=== PATIENT | female | born 1960 | race African-American/Black ===

== ENCOUNTER → 2020-06-19 08:15 | Outpatient (BNVA) | payer OTHER, SELFPAY | PROVIDERS: PCP Family Medicine; Referring Provider Family Medicine; Visit Provider Physician Assistant | DX: Z76.89 Persons encountering health services in other specified circumstances (principal) ==

== ENCOUNTER → 2020-06-26 14:37 | Outpatient (BNVA) | payer OTHER, SELFPAY | PROVIDERS: PCP Pediatrics; Referring Provider Pediatrics; Visit Provider Physician Assistant | DX: Z76.89 Persons encountering health services in other specified circumstances (principal) ==

== ENCOUNTER 2020-07-03 06:31 | Outpatient (REF) | payer OTHER, SELFPAY | END 2020-07-03 06:32 | disposition home or self-care (01) | LOC: HO.LAB 06:31 | PROVIDERS: Visit Provider Family Medicine | DX: Z20.828 Contact with and (suspected) exposure to other viral communicable diseases (principal) | CPT/HCPCS: C9803; U0003 ==

== ENCOUNTER 2020-07-26 08:19 | Outpatient (REF) | payer OTHER, SELFPAY ==
[2020-07-28 15:28] LABS: H Pylori Breath Test DETECTED (NOT DETECTED)
== END 2020-07-26 08:20 | disposition home or self-care (01) ==
LOC: HO.LNP 08:19
PROVIDERS: Physician Assistant; PCP Pediatrics; Referring Provider Pediatrics; Visit Provider Physician Assistant
DX: Z11.0 Encounter for screening for intestinal infectious diseases (principal)
CPT/HCPCS: 83013

== ENCOUNTER → 2020-07-28 08:13 | Outpatient (BNVA) | payer OTHER, SELFPAY | PROVIDERS: PCP Pediatrics; Referring Provider Pediatrics; Visit Provider Surgery | DX: Z76.89 Persons encountering health services in other specified circumstances (principal) ==

== ENCOUNTER → 2020-07-31 08:28 | Outpatient (BNVA) | payer OTHER, SELFPAY | PROVIDERS: PCP Pediatrics; Referring Provider Pediatrics; Visit Provider Dietitian, Registered | DX: Z76.89 Persons encountering health services in other specified circumstances (principal) ==

== ENCOUNTER → 2020-08-07 08:23 | Outpatient (BNVA) | payer OTHER, SELFPAY | PROVIDERS: PCP Pediatrics; Visit Provider Dietitian, Registered | DX: Z76.89 Persons encountering health services in other specified circumstances (principal) ==

== ENCOUNTER 2020-08-09 06:10 | Outpatient (REF) | payer OTHER, SELFPAY ==
[2020-08-09 07:07] LABS: MANUAL DIFF FLAG NO
[2020-08-09 07:13] LABS: Basophils Percent Auto 0.4 % (0-2); Eosinophils Absolute Auto 0.1 X10*3/uL (0.0-0.4); Eosinophils Percent Auto 0.8 % (0-4); Hematocrit 39.7 % (37-47); Imm Gran Abs Auto 0.11 X10*3/uL (0.00-0.03); Imm Gran Pct Auto 1.2 % (0.0-0.4); Lymphocytes Absolute Auto 2.1 X10*3/uL (1.2-4.9); Lymphocytes Percent Auto 23.3 % (20-40); Mean Corpuscular HGB Conc 30.2 g/dl (31.0-35.0); Mean Corpuscular Volume 79.4 fL (80-98); Mean Platelet Volume 10.5 fL (9.4-12.3); Monocytes Absolute Auto 0.5 X10*3/uL (0.1-1.2); Neutrophils Absolute Auto 6.1 X10*3/uL (2.0-8.3); Neutrophils Percent Auto 68.3 % (45-73); Platelet Count 327 X10*3/uL (160-400); Red Cell Distribution Width 14.4 % (11.0-16.0)
[2020-08-09 07:32] LABS: Estimated Average Glucose 148 mg/dL; Hemoglobin A1C 159.0692 umol/L; Hemoglobin A1c % 6.8 %
[2020-08-09 07:48] LABS: Alanine Aminotransferase 36 U/L (0-31); Albumin Level 3.7 g/dL (3.5-5.0); Alkaline Phosphatase 81 U/L (39-117); Anion Gap 11 (12-20); Aspartate Amino Transferase 23 U/L (5-31); Bilirubin Total 0.5 mg/dL (0.0-1.0); Blood Urea Nitrogen 19 mg/dL (9-16); C Reactive Protein 1.19 mg/dL (< or = 0.50); Calcium 9.1 mg/dL (8.4-10.2); Carbon Dioxide 29 mmol/L (22-29); Chloride 104 mmol/L (96-108); Cholesterol 154 mg/dL; Estimated Glomerular Filt Rate > 60; HDL Cholesterol 39 mg/dL; Iron 35 mcg/dL (30-160); LDL Cholesterol Calculated 95 mg/dl; Percent Iron Saturation 9 % (15-50); Potassium 3.3 mmol/l (3.3-5.1); Sodium 141 mmol/L (135-145); Total Iron Binding Capacity 389 mcg/dL (228-428); Total Protein 7.2 g/dL (6.5-8.0); Triglycerides 102 mg/dL; Unsaturated Iron Binding 354 ug/dL
[2020-08-09 07:53] LABS: Ferritin 36 ng/mL (10-250); TSH reflex Free T4 2.06 mIU/mL (0.32-4.0)
[2020-08-09 08:18] LABS: Folate 9.1 ng/mL (> or = 4.0); Vitamin B12 882 pg/mL (200-900)
[2020-08-09 08:48] LABS: Glucose Fasting 51 mg/dL (60-99)
[2020-08-10 11:42] LABS: Insulin Level Total 240.8 uIU/mL
[2020-08-10 19:08] LABS: Calcium (PTHI) 9.2 mg/dL (8.6-10.4); PTHI 54 pg/mL (14-64)
[2020-08-13 12:23] LABS: Vitamin B1 7 nmol/L (8-30)
[2020-08-13 23:32] LABS: Zinc 88 mcg/dL (60-130)
[2020-08-15 11:27] LABS: Vitamin A 44 mcg/dL (38-98)
== END 2020-08-09 06:11 | disposition home or self-care (01) ==
LOC: HO.LAB 06:10
PROVIDERS: PCP Family Medicine; Visit Provider Physician Assistant
DX: E66.01 Morbid (severe) obesity due to excess calories (principal)
CPT/HCPCS: 36415; 80053; 80061; 82306; 82607; 82728; 82746; 83036; 83525; 83540; 83970; 84425; 84443; 84590; 84630; 85025; 86140

== ENCOUNTER 2020-08-14 09:15 | Outpatient (REF) | payer OTHER, SELFPAY ==
--- NOTE | 2020-08-14 09:18 | US_ITS ---
EXAMINATION: US COMPLETE ABDOMEN WITH LIVER ELASTOGRAPHY CLINICAL INFORMATION: [id number] obesity. COMPARISON: None. TECHNIQUE: Real-time imaging of the abdominal viscera. Noninvasive ultrasound liver fibrosis assessment is performed using Danielle ElastPQ point quantification shear wave elastography (pSWE) with a 5 MHz transducer. Multiple elastography samples are obtained. FINDINGS: PANCREAS: The visualized pancreatic head and body are normal in appearance. The tail of the pancreas is obscured from visualization by the overlying bowel gas. ABDOMINAL AORTA: The proximal, middle, and distal aortic segments are normal in caliber. INFERIOR VENA CAVA: Visualized portions are normal. LIVER: The liver demonstrates enlarged size, normal contour and increased echogenicity. No focal lesion or intrahepatic biliary duct dilatation. The right lobe measures 22.6 cm in length. The left lobe measures 13.5 cm in length. There is hepatopedal flow seen in the portal vein on Doppler exam. Shear wave elastography provides a median stiffness of 1.13 m/s (reference: normal median stiffness is 0.81 - 1.22 m/s). The IQR/median stiffness to assess sampling precision is 0.44 (reference: optimal IQR/median stiffness is under 0.3). GALLBLADDER: Gallbladder wall is 0.2 cm thick. The gallbladder is physiologically distended without evidence of stones, sludge, polyps, wall thickening or pericholecystic fluid. COMMON BILE DUCT: Normal in caliber measuring 0.4 cm in diameter. RIGHT KIDNEY: Normal. No hydronephrosis. No renal calculi or focal parenchymal lesions. The kidney measures 13.1 cm in maximum dimension. LEFT KIDNEY: Normal. No hydronephrosis. No renal calculi or focal parenchymal lesions. The kidney measures 11.8 cm in maximum dimension. SPLEEN: Normal. The spleen measures 12.3 cm in maximum dimension. FREE FLUID: None. US/US abdomen comp w elastography IMPRESSION: 1. Hepatic steatosis with mild hepatomegaly but no focal lesion seen. The rest of the abdominal ultrasound is unremarkable. 2. Elastography: Liver elastography measurements are within normal (METAVIR Stage F0). However, there is suboptimal liver sampling.
--- NOTE | 2020-08-14 09:18 | XR_ITS ---
EXAMINATION: XR CHEST CLINICAL INFORMATION: Shortness of breath. COMPARISON: None TECHNIQUE: 2 views of the chest were obtained. FINDINGS: No significant abnormality is noted involving the heart, lungs, mediastinum, bony thorax or soft tissues. XR/XR chest 2V IMPRESSION: Unremarkable chest examination.
--- NOTE | 2020-08-14 09:18 | FL_ITS ---
EXAMINATION: XR GI SERIES CLINICAL INFORMATION: Morbid severe obesity due to excess calories. COMPARISON: None. TECHNIQUE: Routine upper GI air contrast study was performed in upright and lying positions. FINDINGS: Following oral administration of thick barium and effervescent granules, there is normal propagation of bolus from the oral cavity through the pharynx and esophagus and into the stomach without any evidence of obstruction, narrowing or stricture. On placing patient supine and prone, the course, caliber and peristalsis of the stomach and the duodenal bulb are normal. The mucosal pattern of the stomach and the duodenum is normal. There is mild gastroesophageal reflux present without hiatal hernia. FLUOROSCOPY TIME: 1.8 minutes. DOSE AREA PRODUCT: 51.844 uGy-m2 (microgray-meter squared). FL/FL upper GI series IMPRESSION: Mild gastroesophageal reflux. Otherwise unremarkable upper GI air contrast study.
== END 2020-08-14 09:16 | disposition home or self-care (01) ==
LOC: HO.US 09:15
PROVIDERS: PCP Family Medicine; Visit Provider Surgery
DX: Z01.818 Encounter for other preprocedural examination (principal); E66.01 Morbid (severe) obesity due to excess calories; R06.02 Shortness of breath; K21.9 Gastro-esophageal reflux disease without esophagitis
CPT/HCPCS: 71046; 74240; 76705; 76981

== ENCOUNTER → 2020-08-28 07:18 | Outpatient (BNVA) | payer OTHER, SELFPAY | PROVIDERS: PCP Family Medicine; Visit Provider Surgery | DX: Z76.89 Persons encountering health services in other specified circumstances (principal) ==

== ENCOUNTER → 2020-08-30 08:04 | Outpatient (BNVA) | payer OTHER, SELFPAY | PROVIDERS: PCP Family Medicine; Visit Provider Surgery | DX: Z76.89 Persons encountering health services in other specified circumstances (principal) ==

== ENCOUNTER 2020-08-30 08:36 | Outpatient (REF) | payer OTHER, SELFPAY ==
[2020-09-02 14:52] LABS: H Pylori Breath Test NOT DETECTED (NOT DETECTED)
== END 2020-08-30 08:37 | disposition home or self-care (01) ==
LOC: HO.LNP 08:36
PROVIDERS: Visit Provider Physician Assistant
DX: Z01.818 Encounter for other preprocedural examination (principal)
CPT/HCPCS: 83013

== ENCOUNTER 2020-09-01 16:45 | Outpatient (REF) | payer OTHER, SELFPAY | END 2020-09-01 16:46 | disposition home or self-care (01) | LOC: HO.LNP 16:45 | PROVIDERS: Visit Provider Physician Assistant | DX: Z13.89 Encounter for screening for other disorder (principal) ==

== ENCOUNTER → 2020-09-06 07:38 | Outpatient (REF) | payer OTHER, SELFPAY ==
--- NOTE | 2020-09-06 07:49 | ECG_ITS ---
Test Reason : SOB Blood Pressure : / mmHG Vent. Rate : 085 BPM Atrial Rate : 085 BPM P-R Int : 168 ms QRS Dur : 110 ms QT Int : 392 ms P-R-T Axes : 061 081 -05 degrees QTc Int : 466 ms Normal sinus rhythm Nonspecific ST and T wave abnormality Borderline ECG No previous ECGs available Referred By: Charo Ponce Electronically Signed By:TRISTIN MORALEZ
== END ==
LOC: HO.CARD 07:38
PROVIDERS: PCP Family Medicine; Visit Provider Physician Assistant
DX: R06.02 Shortness of breath (principal); E66.01 Morbid (severe) obesity due to excess calories
CPT/HCPCS: 93005

== ENCOUNTER → 2020-09-20 07:27 | Outpatient (BNVA) | payer OTHER, SELFPAY | PROVIDERS: PCP Family Medicine; Visit Provider Surgery ==

== ENCOUNTER → 2020-09-27 08:34 | Outpatient (REF) | payer OTHER, SELFPAY ==
--- NOTE | ~2020-09-27 | NM_ITS ---
Lexiscan Myocardial perfusion study Indication: Abnormal EKG, diabetes, hypertension, obesity, assess for coronary disease and ischemia Technique: The patient was brought in for a Lexiscan perfusion study on 09/27/2020 and was injected 0.4 mg of Lexiscan intravenously. Within a minute of this injection 35 mCi of sestamibi was given intravenously. Images were obtained using the SPECT gamma camera interlaced with the gating device. Images were obtained in supine position. Resting perfusion study was performed on 10/04/2020. Patient was administered 35 mCi of sestamibi intravenously at rest. Images were then obtained in supine position. Total DLP 80mGy-cm. CT component was performed only during stress. Images were processed with the software and compared side to side in short axis, horizontal long axis and vertical long axis views. Findings: Raw acquisition was reviewed. The stress perfusion study showed no significant perfusion abnormality. Both uncorrected as well as CT attenuation corrected images were reviewed. The gated study shows low normal LV systolic function with calculated LVEF of 51%. LV cavity is normal in size. The gated study shows normal wall thickening and contraction of segments. Resting study shows no significant perfusion abnormality. Gating at rest reveals normal wall motion with ejection fraction at 60%. The findings are consistent with no definite reversible or fixed perfusion abnormality. NM/NM leobardo perf SPECT rest & str Impression: 1. Myocardial perfusion imaging study shows likely normal myocardial perfusion. No definitive evidence of any ischemia or infarction. 2. Gated LVEF is 51% during stress; 60% during rest. 3. Transient ischemic dilatation not present. EKG component of the test reported separately.
--- NOTE | 2020-09-27 08:41 | CA_ITS ---
Acquisition Time: 2020-09-27 09:56:42 Total Exercise Time: 00:02:00 Test Indications: Abnormal ECG Medications: SEE CHART Protocol: LEXISCAN Max HR: 103 BPM 63% of Pred: 162 BPM Max BP: 108/062 mmHG Max Work Load: 1.6 METS Pharm stress test using Lexiscan while walking on treadmil for 2 min. Pt tolerated well. Denies any anginal sx. EKG without any arrhythmias, non-diagnostic for ischemia. Nuclear images to follow. Normotensive response to test. Test reviewed with Dr. Saez. Referred By: Jorge Kumar Overread By: Thomas Sam
== END ==
LOC: HO.CARD 08:34
PROVIDERS: Visit Provider Surgery
DX: Z01.818 Encounter for other preprocedural examination (principal); R06.02 Shortness of breath; I10 Essential (primary) hypertension; R94.31 Abnormal electrocardiogram [ECG] [EKG]
CPT/HCPCS: 78452; 93017; A9500; J0280; J2785

== ENCOUNTER → 2020-10-09 12:47 | Outpatient (BNVA) | payer OTHER, SELFPAY | PROVIDERS: PCP Family Medicine; Visit Provider Dietitian, Registered ==

== ENCOUNTER → 2020-10-11 07:30 | Outpatient (BNVA) | payer OTHER, SELFPAY | PROVIDERS: PCP Family Medicine; Visit Provider Surgery ==

== ENCOUNTER → 2020-10-30 08:24 | Outpatient (REF) | payer OTHER, SELFPAY ==
--- NOTE | 2020-10-30 08:28 | CA_ITS ---
Transthoracic Echocardiogram Patient (Last, First, Middle): Sujata Rincon, Gender: Female Date of : 1960 Age: 59 Procedure Date: 10/30/2020 Procedure Type: Transthoracic Echocardiogram Location: OP Height: 167.64 cm Weight: 106.6 kg BSA: 2.14 m2 Heart Rate: bpm BP: 110 / 60 mmHg Cover Seamer: DSG Referring MD: Jorge Kumar MD High Rigger: Davin Juarez MD Symptoms: R94.31 - Abnormal electrocardiogram [ECG] [EKG] Study Quality: Technically Difficult ECG Rhythm: Sinus Conclusions: - 1. Technically difficult study despite use of contrast agent 2. Normal LV systolic function with LVEF of 65-70% with grade 1 diastolic dysfunction with mild asymmetric septal hypertrophy 3. Normal cardiac valvular Doppler 4. No gross pericardial effusion Findings Procedure Information Contrast agent, definity, is being given per protocol without apparent complications. Left Ventricle Normal left ventricular size, thickness, and systolic function. The visually estimated ejection fraction is between 65-70%. Spectral Doppler is indicative of an impaired relaxation filling pattern. E/E prime ratio is <8, consistent with normal filling pressures. Evidence suggests grade I (mild) diastolic dysfunction. There is mild septal asymmetric hypertrophy. Right Ventricle The right ventricle was not well visualized. Atria The left atrium is normal in size. There is lipomatous hypertrophy of the interatrial septum. There is no evidence of interatrial shunt. The right atrium was not well visualized. Aortic Valve There is mild calcification of the aortic valve. There is mild thickening of the aortic valve. There is no aortic valve stenosis. There is no aortic valve regurgitation. Mitral Valve Likely normal mitral valve structure and function. There is trace mitral valve regurgitation. There is no mitral valve stenosis. Pulmonic Valve The pulmonic valve was not well visualized. Tricuspid Valve The tricuspid valve was not well visualized. Tricuspid regurgitation envelope is inadequate for calculation of right ventricular systolic pressure. Great Vessels All visible segments of the aorta are normal in size. The pulmonary artery was not well visualized. Venous The inferior vena cava is normal in size and collapses greater than 50% with inspiration. Pericardium/Pleural There is no evidence of pericardial effusion. Prior Study Comparison No prior study available for comparison. Measurements M-Mode Liner Measurements Normals - Women/Men IVSd: 1.47 0.6-0.9/0.6-1.0 cm LVPWd: 1.66 0.6-0.9/0.6-1.0 cm 2D Linear Measurements IVSd: 1.22 0.6-0.9/0.6-1.0 cm LVIDd: 3.79 3.9-5.3/4.2-5.9 cm LVIDd Index: 1.77 2.4-3.2/2.2-3.1 cm/m2 LVIDs: 2.58 2.0-3.6 cm LVPWd: 0.82 0.7-1.1 cm Ao Root: 3.40 2.1-3.5 cm LA Diam: 3.40 2.7-3.8/3.0-4.0 cm LAIDs Index: 1.59 1.5-2.3 cm/m2 LV Mass: 219.86 67-162/88-224 g LV Mass Index: 102.74 43-95/49-115 g/m2 LVOT Diam: 2.20 3.0+(-)1.3 cm Mitral Valve MV Pk E: 0.62 MV PK A: 0.67 MV Decel Time: 317.00 E/A: 0.90 E'Lateral: 6.42 E'Medial: 5.33 E/E' Med: 11.70 E/E' Lat: 9.70 PHT: 93.00 MVA PHT: 2.37 Decel [place]: 1.97 Aortic Valve AoV Pk Corbin: 1.13 AoV Pk Grad: 5.00 LVOT LVOT Pk [place]: 1.11 LVOT Mn [place]: 0.83 LVOT VTI: 0.24 LVOT Pk Grad: 5.00 LVOT Mn Grad: 3.00 LVOT Diam: 2.20 LVOT Area: 3.80 Diastolic Function MV Pk E: 0.62 MV Pk A: 0.67 E/A: 0.90 E'Medial: 5.33 E/E' Med: 11.70 E' Laterial: 6.42 E/E' Lat: 9.70 Tricuspid Valve RA Press: 3.00 Great Vessels Aorta Ao Root-2D: 3.40 2.0-3.7 cm Ao Asc: 3.30 2.1-3.4 cm Updated in Other Vendor System with Status of Final Davin Juarez MD electronically signed on 10/30/2020 4:44:33 PM with status of Final
== END ==
LOC: HO.CARD 08:24
PROVIDERS: Visit Provider Surgery
DX: Z01.818 Encounter for other preprocedural examination (principal); R06.02 Shortness of breath; I10 Essential (primary) hypertension; R94.31 Abnormal electrocardiogram [ECG] [EKG]
CPT/HCPCS: 93306; Q9957

== ENCOUNTER → 2020-11-01 08:10 | Outpatient (BNVA) | payer OTHER, SELFPAY | PROVIDERS: PCP Family Medicine; Visit Provider Surgery ==

== ENCOUNTER 2020-11-20 11:31 | Outpatient (REF) | payer OTHER, SELFPAY ==
[2020-11-21 10:00] LABS: CT PCR NOT DETECTED (Not Detect.); NG PCR NOT DETECTED (Not Detect.)
[2020-11-21 10:43] LABS: BV Int Neg Control Negative (Negative); BV Int Pos Control Positive (Positive)
== END 2020-11-20 11:32 | disposition home or self-care (01) ==
LOC: HO.LAB 11:31
PROVIDERS: PCP Family Medicine; Visit Provider Advanced Practice Midwife
DX: N89.8 Other specified noninflammatory disorders of vagina (principal); Z11.3 Encounter for screening for infections with a predominantly sexual mode of transmission; Z11.8 Encounter for screening for other infectious and parasitic diseases; L65.9 Nonscarring hair loss, unspecified; E66.01 Morbid (severe) obesity due to excess calories; E78.5 Hyperlipidemia, unspecified; I10 Essential (primary) hypertension; F41.9 Anxiety disorder, unspecified; Z87.891 Personal history of nicotine dependence; Z68.41 Body mass index [BMI] 40.0-44.9, adult; Z90.710 Acquired absence of both cervix and uterus
CPT/HCPCS: 87480; 87491; 87510; 87591; 87660

== ENCOUNTER → 2020-11-22 07:36 | Outpatient (BNVA) | payer OTHER, SELFPAY | PROVIDERS: PCP Family Medicine; Visit Provider Surgery ==

== ENCOUNTER → 2020-12-15 07:04 | Outpatient (BNVA) | payer OTHER, SELFPAY | PROVIDERS: PCP Family Medicine; Visit Provider Surgery ==

== ENCOUNTER → 2021-01-01 14:02 | Outpatient (BNVA) | payer OTHER, SELFPAY | PROVIDERS: PCP Family Medicine; Visit Provider Surgery ==

== ENCOUNTER → 2021-01-12 12:55 | Outpatient (BNVA) | payer OTHER, SELFPAY | PROVIDERS: PCP Family Medicine; Visit Provider Obstetrics & Gynecology ==

== ENCOUNTER → 2022-01-22 08:53 | Outpatient (BNVA) | payer OTHER, SELFPAY | PROVIDERS: PCP Family Medicine; Visit Provider Obstetrics & Gynecology | DX: Z01.419 Encounter for gynecological examination (general) (routine) without abnormal findings (principal) ==

== ENCOUNTER → 2023-01-27 09:03 | Outpatient (BNVA) | payer OTHER, SELFPAY | PROVIDERS: PCP Family Medicine; Visit Provider Obstetrics & Gynecology ==

== ENCOUNTER 2023-03-10 13:37 | Outpatient (AMB) | payer OTHER, SELFPAY ==
--- NOTE | 2023-03-10 13:52 | MHC.OFFVIS ---
Intake Vital Signs 03/10/23 13:53 Height 5 ft 6 in Weight 237 lb BMI 38.2 BP 112/56 L Intake Visit Reasons: vaginal infection Intake Note: pt c/o vaginal itching, patient used monistat 3 day with no relief, then monistat 7 day last used friday feeling better Allergies No Known Allergies Allergy (Verified 03/10/23 13:53) HPI HPI Comments History of Present Illness Details Presenting complaining of a week history of vulvovaginal itching. The patient took [id number] Monistat 3 and then followed by 7 days, her symptoms completely resolved. Currently no vulvovaginal itching or discharge and no other associated symptoms PFSH Medical History Alopecia Anxiety BMI 40.0-44.9, adult Depression H/O cataract Heart murmur Hyperlipidemia Hypertension Morbid obesity Obesity BREANNE on CPAP Type 2 diabetes mellitus Surgical History History of wisdom tooth extraction, class II edentulism Hx of breast biopsy Hx of colonoscopy S/P GUILEL (total abdominal hysterectomy) Family History Father DM (diabetes mellitus) Mother DM (diabetes mellitus) Brother No problems noted. Sister No problems noted. Social History Alcohol intake: never Female Reproductive History Menstrual Age of Menarche: 14 Review of Systems Const All systems reviewed & are unremarkable except as noted in HPI and below Physical Exam Vital Signs: Last Vital Signs BP 112/56 L 03/10/23 13:53 BMI result Body Mass Index 38.2 General: Yes no CVA tenderness External Female Exam: normal external appearance and normal appearance of the urethra Speculum Exam - Vagina: normal appearance of the vagina, normal palpation, no lesions and no masses Speculum Exam - Cervix: normal appearance of the cervix, normal palpation, no lesions, no masses and nontender Bimanual exam- vagina & uterus: normal bimanual exam, normal palpation, uterine size normal, normal palpation, uterine shape normal, No Cervical tenderness present and non-tender Bimanual Exam- Adnexa, other: normal adnexae Back/Spine/Pelvis Back: no CVA tenderness Assessment & Plan Assessment & Plan (1) Vulvovaginitis due to Ghazala: Code(s): B37.31 - Acute candidiasis of vulva and vagina Plan: GC/CT with BV panel collected. Instructions given the patient to call if symptoms recur. All questions answered, the patient verbalized understanding. Orders: Orders Bacterial Vaginosis Panel Today Z01.419 - Encounter for gynecological examination (general) (routine) without abnormal findings CT NG by PCR Today Z01.419 - Encounter for gynecological examination (general) (routine) without abnormal findings Coding Level of Care Code Est Pt Level 3 (35541) Diagnoses Vulvovaginitis due to Ghazala B37.31
[2023-03-10 13:53] VITALS: BP 112/56; BMI 38.2
== END 2023-03-10 14:08 | disposition home or self-care (01) ==
LOC: HO.HWS 13:37
PROVIDERS: PCP Family Medicine; Visit Provider Obstetrics & Gynecology
DX: B37.31 Acute candidiasis of vulva and vagina (principal)
CPT/HCPCS: 99213

== ENCOUNTER 2023-03-10 13:37 | Outpatient (REF) | payer OTHER, SELFPAY ==
[2023-03-10 17:59] LABS: CT PCR NOT DETECTED (Not Detect.); NG PCR NOT DETECTED (Not Detect.)
[2023-03-11 14:59] LABS: BV Int Neg Control Negative (Negative); BV Int Pos Control Positive (Positive)
== END 2023-03-10 13:38 | disposition home or self-care (01) ==
LOC: HO.LNP 13:37
PROVIDERS: PCP Family Medicine; Visit Provider Obstetrics & Gynecology
DX: Z01.419 Encounter for gynecological examination (general) (routine) without abnormal findings (principal); B37.31 Acute candidiasis of vulva and vagina
CPT/HCPCS: 0353U; 87480; 87510; 87660

== ENCOUNTER 2023-03-13 16:18 | Outpatient (REF) | payer OTHER, SELFPAY ==
[2023-03-14 07:49] LABS: Syphilis Screen Nonreactive (Nonreactive)
[2023-03-14 08:57] LABS: HBsAGNum1 0.38 S/CO (0.00-0.99); HIV AB/AG Nonreactive (Nonreactive); Hepatitis B Surface Antigen Negative (Negative); ~HepC Num1 0.08 S/CO (0.00-0.79); ~Hepatitis C Antibody Nonreactive (Nonreactive)
== END 2023-03-13 16:19 | disposition home or self-care (01) ==
LOC: HO.LAB 16:18
PROVIDERS: Visit Provider Obstetrics & Gynecology
DX: A59.9 Trichomoniasis, unspecified (principal)
CPT/HCPCS: 36415; 86780; 86803; 87340; 87389

== ENCOUNTER 2023-04-01 08:51 | Outpatient (REF) | payer OTHER, SELFPAY ==
[2023-04-02 15:11] LABS: BV Int Neg Control Negative (Negative); BV Int Pos Control Positive (Positive)
== END 2023-04-01 08:52 | disposition home or self-care (01) ==
LOC: HO.LNP 08:51
PROVIDERS: PCP Family Medicine; Visit Provider Obstetrics & Gynecology
DX: B37.31 Acute candidiasis of vulva and vagina (principal); A59.9 Trichomoniasis, unspecified
CPT/HCPCS: 87480; 87510; 87660

== ENCOUNTER 2023-04-01 08:51 | Outpatient (AMB) | payer OTHER, SELFPAY ==
[2023-04-01 08:53] VITALS: BP 118/72; BMI 38.2
--- NOTE | 2023-04-01 08:53 | MHC.OFFVIS ---
Intake Vital Signs 04/01/23 08:53 Height 5 ft 6 in Weight 237 lb BMI 38.2 BP 118/72 Blood Pressure Location Lt brachial Position Sitting Intake Visit Reasons: SUREKHA Allergies No Known Allergies Allergy (Verified 04/01/23 09:00) HPI HPI Comments History of Present Illness Details Presenting for test of cure for Trichomonas. The patient received and completed the prescribed antibiotics. No unprotected intercourse since that diagnosis and initiation of the treatment PFSH Medical History Alopecia Anxiety BMI 40.0-44.9, adult Depression H/O cataract Heart murmur Hyperlipidemia Hypertension Morbid obesity Obesity BREANNE on CPAP Type 2 diabetes mellitus Surgical History History of wisdom tooth extraction, class II edentulism Hx of breast biopsy Hx of colonoscopy S/P GUILLE (total abdominal hysterectomy) Family History Father DM (diabetes mellitus) Mother DM (diabetes mellitus) Brother No problems noted. Sister No problems noted. Social History Alcohol intake: never Female Reproductive History Menstrual Age of Menarche: 14 Review of Systems Const All systems reviewed & are unremarkable except as noted in HPI and below Physical Exam Vital Signs: Last Vital Signs BP 118/72 04/01/23 08:53 BMI result Body Mass Index 38.2 General: Yes no CVA tenderness External Female Exam: normal external appearance and normal appearance of the urethra Speculum Exam - Vagina: normal appearance of the vagina, normal palpation, no lesions and no masses Speculum Exam - Cervix: normal appearance of the cervix, normal palpation, no lesions, no masses and nontender Bimanual exam- vagina & uterus: normal bimanual exam, normal palpation, uterine size normal, normal palpation, uterine shape normal, No Cervical tenderness present and non-tender Bimanual Exam- Adnexa, other: normal adnexae Back/Spine/Pelvis Back: no CVA tenderness Assessment & Plan Assessment & Plan (1) Trichomonas infection: Code(s): A59.9 - Trichomoniasis, unspecified Plan: BV panel taken. Will check the results and treat accordingly. Recommended repeat STD screen serology in 6 months Orders: Orders Bacterial Vaginosis Panel Today B37.31 - Acute candidiasis of vulva and vagina Hepatitis B Surface Antigen 6 Months Z20.2 - Contact with and (suspected) exposure to infections with a predominantly sexual mode of transmission Hepatitis C Antibody 6 Months Z20.2 - Contact with and (suspected) exposure to infections with a predominantly sexual mode of transmission Syphilis Screen 6 Months Z20.2 - Contact with and (suspected) exposure to infections with a predominantly sexual mode of transmission HIV Ab/Ag 6 Months Z20.2 - Contact with and (suspected) exposure to infections with a predominantly sexual mode of transmission Coding Level of Care Code Est Pt Level 3 (96416) Diagnoses Trichomonas infection A59.9
== END 2023-04-01 09:21 | disposition home or self-care (01) ==
LOC: HO.HWS 08:51
PROVIDERS: PCP Family Medicine; Visit Provider Obstetrics & Gynecology
DX: A59.9 Trichomoniasis, unspecified (principal)
CPT/HCPCS: 99213

== ENCOUNTER 2024-03-22 09:25 | Outpatient (REF) | payer OTHER, SELFPAY ==
[2024-03-24 14:58] LABS: HPV mRNA E6/E7 Not Detected (Not Detected)
== END 2024-03-22 09:26 | disposition home or self-care (01) ==
LOC: HO.LNP 09:25
PROVIDERS: PCP Family Medicine; Visit Provider Obstetrics & Gynecology
DX: Z01.419 Encounter for gynecological examination (general) (routine) without abnormal findings (principal); Z11.51 Encounter for screening for human papillomavirus (HPV)
CPT/HCPCS: 87624; 88175

== ENCOUNTER 2024-03-22 09:25 | Outpatient (AMB) | payer OTHER, SELFPAY ==
--- NOTE | 2024-03-22 09:46 | A.OFFVIS_ITS ---
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 No complaints. Last Pap/HPV was negative in 01/04 Last Mammogram was in 09/10 at [facility], report is not available but was negative according to the patient Last Colonoscopy was done a year ago [facility] Medical History Alopecia Obesity BMI 40.0-44.9, adult Type 2 diabetes mellitus Hypertension Heart murmur Anxiety Depression BREANNE on CPAP Hyperlipidemia Morbid obesity H/O cataract Surgical History (Updated 03/22/24 @ 10:14 by Evangelista Ruiz MD) History of wisdom tooth extraction, class II edentulism Hx of colonoscopy Hx of breast biopsy S/P GUILLE (total abdominal hysterectomy) Family History Father DM (diabetes mellitus) Mother DM (diabetes mellitus) Brother No problems noted. Sister No problems noted. 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 Sexually active: No Sexual orientation: Straight/Heterosexual Gender identity: Female Female Reproductive History Menstrual Age of Menarche: 14 Total pregnancies: 0 Review of Systems Const All systems reviewed & are unremarkable except as noted in HPI and below Card Reports as per HPI Resp Reports as per HPI GI Reports as per HPI and Reports no additional complaints Reports as per HPI Physical Exam Vital Signs: Last Vital Signs BP 92/60 03/22/24 09:47 BMI result Body Mass Index 35.2 Const General: cooperative, healthy appearing and comfortable Chest Chest palpation & inspection: normal inspection of the chest and normal palpation of entire chest wall Breast/axilla inspection: normal inspection of the breasts and normal inspection of the axillae Breast/axilla palpation: normal palpation of the breasts, normal palpation of the axillae and no axillary lymphadenopathy Resp Effort & Inspection: normal respiratory effort Auscultation: clear to auscultation bilaterally Percussion: percussion normal Cardio Palpation: normal PMI Rate: regular rate Rhythm: regular rhythm Heart sounds: no murmurs and no rubs Peripheral pulses: Peripheral pulses 2+ throughout GI Inspection: Yes normal to inspection Palpation (GI): Soft to palpation, nontender, no guarding, not rigid and No hepatosplenomegaly present Percussion: Yes normal to percussion Auscultation: normal bowel sounds Rectal Exam - Female: deferred General: Yes bladder normal to palpation External Female Exam: No lesion Speculum Exam - Vagina: normal appearance of the vagina, normal palpation, normal vaginal discharge and not erythematous Speculum Exam - Cervix: normal appearance of the cervix and normal palpation Bimanual exam- vagina & uterus: normal bimanual exam, normal palpation, bladder normal to palpation, normal palpation and uterus absent Bimanual Exam- Adnexa, other: Other (Suboptimal exam due to body habitus but No pelvic masses felt) Assessment & Plan Assessment & Plan (1) Well woman exam: Code(s): Z01.419 - Encounter for gynecological examination (general) (routine) without abnormal findings Category: Medical Plan: Co testing done. Counseled the patient about the recommended dietary allowance of 1200 mg of C alcium & 600 IU of vitamin D. Instructions given the patient to schedule next screening Mammogram in 09/11. The patient was instructed to perform monthly self-breast exams and schedule annual exam in a year. All questions answered and the patient verbalized understanding. Coding Level of Care Code Est Pt Prev Care 40-64y(90827) Diagnoses Well woman exam Z01.419
[2024-03-22 09:47] VITALS: BP 92/60; BMI 35.2
== END 2024-03-22 10:16 | disposition home or self-care (01) ==
LOC: HO.HWS 09:25
PROVIDERS: PCP Family Medicine; Visit Provider Obstetrics & Gynecology
DX: Z01.419 Encounter for gynecological examination (general) (routine) without abnormal findings (principal)
CPT/HCPCS: 99396

== ENCOUNTER 2025-07-18 15:36 | Outpatient (AMB) | payer OTHER, SELFPAY ==
--- OUTSIDE RECORDS SUMMARY | 2010-11-07 19:00 | XMS_ITS | Continuity of Care Document ---
Author Organization [facility] Address [address] [place] [address] Phone Care Team Providers Care Morphologist Name Role Phone Unavailable Unavailable Unavailable Results Test Name Date and Time Measure Units Reference Range Abnormal Flag Status Comments Panel Description: REFRACTION Unknown Document 0 00:00:00 See [facility] Archive Unknown [facility] Conversion NoResultDesc 0 00:00:00 Unknown Panel Description: EYE EXAM, NEW PATIENT Unknow n Document 0 00:00:00 See [facility] Archive Unknown [facility] Conversion NoResultDesc 0 00:00:00 Unknown Advance Directives Directive Yes / No Effective Date File Name No Information Encounters Encounter Description Practice Location Reason(s) For Visit Diagnoses Date Provider Providers Copied on Encounter [facility] [place], [address] [place] [address], [facility], tel:[phone] [facility] No Information No Information [facility] [place], [address] [place] [address], [facility], tel:[phone] Conversion DIABETES MELLITUS - TYPE IIBENIGN ESSENTIAL HYPERTENSIONSEN ILE NUCLEAR SCLEROSISOPEN ANGLE WITH BORDERLINE GLAUCOMA FINDINGSMYOPIA 1 No Information Family History Family Member Type Diagnosis Age At Onset No Information Payers Payer name Insurance type Covered democrat ID Authoriza tion(s) No Information Social History Type Description Quantity Date Captured Comments Sex Female Smoking Status No Information Chief Complaint And Reason For Visit No Information Reason For Referral Reason For Referral No Information History Of Present Illness Encounter Date Complaint History Of Prese nt Illness No Information Functional Status Date Functional Assessmen t No Information Instructions Date Instruction Additional Infor mation No Information Assessments Type Assessment Date No Information Patient Care Teams Name Effective Dates (start - stop) Status Members No Information
--- NOTE | 2025-07-18 15:50 | A.OFFVIS_ITS ---
Vital Signs 07/18/25 15:52 Height 5 ft 6 in Weight 239 lb BMI 38.6 BP 110/60 Intake Visit Reasons: [employer] annual exam/DO NOT RS [place] Required: No Allergies No Known Allergies Allergy (Verified 07/18/25 15:53) Post menopausal: Yes HPI Comments Details: Presenting for annual exam. No complaints. Last Pap/HPV was negative in 04/10 Last Mammogram was BI-RADS 2 in 10/12 at [facility], no records available but according to the patient the results was negative Last colonoscopy was 2 years ago, the recommendation was to repeat in 10 years according to the patient, no records available [facility] Medical History Alopecia Obesity BMI 40.0-44.9, adult Type 2 diabetes mellitus Hypertension Heart murmur Anxiety Depression BREANNE on CPAP Hyperlipidemia Morbid obesity H/O cataract Surgical History History of wisdom tooth extraction, class II edentulism Hx of colonoscopy Hx of breast biopsy S/P GUILLE (total abdominal hysterectomy) Family History Father DM (diabetes mellitus) Mother DM (diabetes mellitus) Brother No problems noted. Sister No problems noted. 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 Sexual orientation: Straight/Heterosexual Gender identity: Female Female Reproductive History Menstrual Age of Menarche: 14 Date of last pap smear: 03/22/24 Review of Systems Const All systems reviewed & are unremarkable except as noted in HPI and below Card Reports as per HPI Resp Reports as per HPI GI Reports as per HPI and Reports no additional complaints Reports as per HPI Physical Exam Vital Signs: Last Vital Signs BP 110/60 07/18/25 15:52 BMI result Body Mass Index 38.6 Const General: cooperative, healthy appearing and comfortable Chest Chest palpation & inspection: normal inspection of the chest and normal palpation of entire chest wall Breast/axilla inspection: normal inspection of the breasts and normal inspection of the axillae Breast/axilla palpation: normal palpation of the breasts, normal palpation of the axillae and no axillary lymphadenopathy Resp Effort & Inspection: normal respiratory effort Auscultation: clear to auscultation bilaterally Percussion: percussion normal Cardio Palpation: normal PMI Rate: regular rate Rhythm: regular rhythm Heart sounds: no murmurs and no rubs Peripheral pulses: Peripheral pulses 2+ throughout GI Inspection: Yes normal to inspection Palpation (GI): Soft to palpation, nontender, no guarding, not rigid and No hepatosplenomegaly present Percussion: Yes normal to percussion Auscultation: normal bowel sounds Rectal Exam - Female: deferred General: Yes bladder normal to palpation External Female Exam: No lesion Speculum Exam - Vagina: normal appearance of the vagina, normal palpation, normal vaginal discharge and not erythematous Speculum Exam - Cervix: normal appearance of the cervix and normal palpation Bimanual exam- vagina & uterus: normal bimanual exam, normal palpation, uterine size normal, bladder normal to palpation, consistency normal and normal palpation Bimanual Exam- Adnexa, other: normal adnexae, no masses and no tenderness Assessment & Plan Assessment & Plan (1) Well woman exam: Code(s): Z01.419 - Encounter for gynecological examination (general) (routine) without abnormal findings Category: Medical Plan: Co testing not indicated this year. Counseled the patient about the recommended dietary allowance of 1200 mg of Calcium & 600 IU of vitamin D. Instructions given to patient to schedule next screening Mammogram in 10/13. The patient was instructed to perform monthly self-breast exams and schedule annual exam in a year. All questions answered and the patient verbalized understanding. Coding Level of Care Code Est Pt Prev Care 40-64y(11792) Diagnoses Well woman exam Z01.419
[2025-07-18 15:52] VITALS: BP 110/60; BMI 38.6
--- OUTSIDE RECORDS SUMMARY | 2025-07-18 18:31 | XMS_ITS | Clinical Summary ---
Author Organization [facility] Address [address] [place] [address] Care Team Providers Care Form Block Maker Name Role Phone Unavailable Primary Care Provider Unavailabl e Social History Tobacco Use Types Packs/Day Years Used Date Smoking Tobacco: Never Assessed Comments Unknown Sex and Gender Information Value Date Recorded Sex Assigned at Not on file Legal Sex Female 2:12 PM EDT Gender Identity Not on file Sexual Orientation Not on file Plan of Treatment Health Maintenance Due Date Last Done Comments Hepatitis C Virus Screening 1961 HIV Screening 1974 DTaP/Tdap/Td Vaccines (1 - Tdap) 1980 Pneumococcal Vaccines 50+ (1 of 1 - PCV) 12/09/2011 Zoster (Shingles) Vaccine (1 of 2) 12/09/2011 COVID-19 Vaccine ( - 2023-2 5 season) 2025 RSV Vaccine 50 years and old er and Patients (1 - 1-dose 75+ series) 2036 Hepatitis B Vaccines Aged Out No long er eligible based on patient's age to complete this topic
--- OUTSIDE RECORDS SUMMARY | 2025-07-18 18:31 | XMS_ITS | Clinical Summary ---
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
--- OUTSIDE RECORDS SUMMARY | 2025-07-18 18:31 | XMS_ITS | Clinical Summary ---
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 04/12/20 24 Active albuterol HFA (PROAIR HFA ; PROVENTIL HFA ; VENTOLIN HFA) 90 mcg/actuation inhaler 07/23/20 23 Active blood-glucose meter kitIndications:Type 2 diabetes mellitus with microalbuminuria ([facility] V24, [facility] V28) Freestyle Manpreet 3 sensors, See Instructions, # 6 each, Refills 0, Tot. Refills 0, Maintenance, change every 14 days. E11.9. 90 day supply., 05/01/24 15:07:00 EDT, Supply, 167, cm, 04/12/24 6:54:00 EDT, Height, 99, kg, 04/12/24 6:54:00 EDT, Dry Weight 05/01/20 24 Active fluticasone propionate (FLONASE) 50 mcg/actuation nasal sprayIndications:Chr onic rhinitis Administer 1 spray into each nostril 2 (two) times a day. Shake gently. Before first use, prime pump. After use, clean tip and replace cap. 16 g 5 07/07/20 24 Active chlorhexidine (HIBICLENS) 4 % external liquid 09/18/19 24 Active HumuLIN R U-500, Conc, Kwikpen 500 unit/mL (3 mL) CONCENTRATED injection pen Inject 30 Units under the skin 2 (two) times a day before meals. 10/31/19 22 Active cloNIDine (CATAPRES) 0.1 mg tablet Take 1 tablet (0.1 mg total) by mouth 1 (one) time each day if needed (anxiety). 90 tablet 1 12/02/19 25 Active naltrexone (DEPADE) 50 mg tablet Take 1 tablet (50 mg total) by mouth 1 (one) time each day. 12/07/19 25 Active blood-glucose,receiv er,cont (FreeStyle Manpreet 3 Bowman) misc Freestyle Manpreet 3 Bowman, See Instructions, # 1 each, Refills 0, Tot. Refills 0, Maintenance, use to monitor BGs. E11.9, 05/01/24 3:06:00 PM EDT, Supply, 167, cm, 04/12/24 6:54:00 EDT, Height, 99, kg, 04/12/24 6:54:00 EDT, Dry Weight 05/01/20 24 Active metFORMIN XR (GLUCOPHAGE-XR) 500 mg 24 hr tabletIndications:Ty pe 2 diabetes mellitus with microalbuminuria (CMS/HCC V24, CMS/HCC V28) Take 1 tablet (500 mg total) by mouth 2 (two) times a day with meals. Do not crush, chew, or split. 12/17/19 25 Active lisinopriL (PRINIVIL,ZESTRIL) 20 mg tabletIndications:Pr imary hypertension Take 1 tablet (20 mg total) by mouth 1 (one) time each day. 90 tablet 1 12/17/19 25 Active rosuvastatin (CRESTOR) 40 mg tabletIndications:Hy percholesterolemia Take 1 tablet (40 mg total) by mouth 1 (one) time each day at the same time. 90 tablet 1 12/17/19 25 Active levocetirizine (XYZAL) 5 mg tabletIndications:Ch ronic rhinitis,Allergic conjunctivitis of both eyes TAKE 1 TABLET BY MOUTH 1 TIME EACH DAY IN THE EVENING. 90 tablet 1 01/04/20 Active tirzepatide (Mounjaro) 7.5 mg/0.5 mL injectionIndications :Type 2 diabetes mellitus with microalbuminuria ([place] V24, [place] V28),Class 2 severe obesity due to excess calories with serious comorbidity and body mass index (BMI) of 38.0 to 38.9 in adult Inject 0.5 mL (7.5 mg total) under the skin every 7 (seven) days. 04/04/20 Active furosemide (LASIX) 20 mg tablet Take 1 tablet (20 mg total) by mouth 1 (one) time each day. 04/04/20 Active ketotifen fumarate (Zaditor) 0.035 % ophthalmic solutionIndications: Allergic conjunctivitis of both eyes Administer 1 drop into both eyes 2 (two) times a day. 10 mL 1 05/26/20 Active Active Problems Problem Noted Date Diagnosed Date Benign cyst of left kidney 05/06/2025 Lung nodules 04/21/2025 Assessment & Plan (05/26/2025 6:01 PM EDT): CT chest is as above.repeat will be due in July. Advised to schedule this with radiology today Adrenal hyperplasia ([place] V24) 04/21/2025 Overview (04/21/2025): left Assessment & Plan (05/26/2025 6:01 PM EDT): Follow up with endocrinology Printed a copy of her MRI and CT and is advised to take this to her next appointment with the biology department chair next month Adrenal nodule ([facility] V24) 04/21/2025 Overview (04/21/2025): right Assessment & Plan (05/26/2025 6:01 PM EDT): As above Aortic dilatation ([place] V24) 10/07/2024 Overview (10/07/2024): The Sinus of Valsalva is dilated (4.1 cm). The ascending aorta is dilated (3.4 cm). (Sep 2024) Mild HOCM (hypertrophic obst ructive cardiomyopathy) ([facility] V24, [facility] V28) 10/07/2024 Assessment & Plan (05/26/2025 6:01 PM EDT): [facility] Continue Lasix 20 mg daily and potassium supplement. Assessment & Plan (04/04/2025 2:14 PM EDT): [facility]. States she has echo scheduled for 04/07/25 Continues lasix 20mg daily and potassium supplement Assessment & Plan (12/16/2024 2:50 PM EDT): She is advised to follow-up yearly with cardiology. Recent visit in October or November per patient. I do not have the records for review Last ECHO is as above Internal and external hemorrhoids without compli cation 08/02/2024 Overview (08/02/2024): Noted on colonoscopy done on 07/24/21 Neuroendocrine neoplasm of duodenum ([facility] V28 ) 07/22/2024 Overview (07/22/2024): Egd/Biopsy November 05, 2021 at [facility] EGD/biopsy done 04/12/2024-duodenal mucosa without pathologic change. Normal villous architecture Type 2 diabetes mellitus wit h microalbuminuria ([facility] V24, [facility] V28) 07/07/2024 Assessment & Plan (05/26/2025 6:01 PM EDT): Poorly controlled based on last A1c but she has been having night time hypoglycemic episodes. Advised to reach out to her biology department chair to make adjustments to her insulin regimen Continue metformin 500 mg twice daily and Mounjaro 7.5 mg weekly Assessment & Plan (04/04/2025 2:14 PM EDT): Continue endocrinology follow up Continue Mounjaro weekly,insulin HumuLIN U 500 KwikPen 35U QAM + 30U QHS, metformin 500mg BID Due for A1c which is ordered Orders: Hemoglobin A1c; Future Assessment & Plan (12/16/2024 2:50 PM EDT): Per Patient, her recent A1c with her biology department chair which was done last month was 7 or 8 She will continue Ozempic 2mg weekly, insulin HumuLIN U 500 KwikPen 35U QAM + 30U QHS, metformin 500mg BID and follow-up with her biology department chair Given her weight gain and difficulty with weight loss on Ozempic she is advised to discuss the option of Mounjaro or Zepbound with her biology department chair at the next visit Orders: Diabetes Foot Exam Hypercholesterolemia 07/07/2024 Assessment & Plan (05/26/2025 6:01 PM EDT): Well controlled. LDL is at goal of <70 Continue Crestor 40mg daily. Assessment & Plan (04/04/2025 2:14 PM EDT): Continue Crestor 40 mg Assessment & Plan (12/16/2024 2:50 PM EDT): Continue Crestor 40 mg nightly. Her LDL is close to goal of 70. Last LDL was 84. Orders: Lipid panel with reflex to direct LDL; Future Comprehensive metabolic panel; Future rosuvastatin (CRESTOR) 40 mg tablet; Take 1 tablet (40 mg total) by mouth 1 (one) time each day at the same time. Primary hypertension 07/07/2024 Assessment & Plan (05/26/2025 6:01 PM EDT): Well controlled Continue lisinopril 20mg daily and clonidine 0.1 mg daily Orders: Blood pressure monitor Assessment & Plan (04/04/2025 2:14 PM EDT): Well controlled. Continue lisinopril 20mg daily and clonidine 0.1 mg daily. Assessment & Plan (12/16/2024 2:50 PM EDT): Blood pressure is well-controlled. Continue lisinopril 20 mg daily and clonidine 0.1 mg daily Orders: lisinopriL (PRINIVIL,ZESTRIL) 20 mg tablet; Take 1 tablet (20 mg total) by mouth 1 (one) time each day. Allergic conjunctivitis of both eyes 07/07/2024 Assessment & Plan (05/26/2025 6:01 PM EDT): Start ketotifen eye drops Continue xyzal nightly as needed Orders: ketotifen fumarate (Zaditor) 0.035 % ophthalmic solution; Administer 1 drop into both eyes 2 (two) times a day. Assessment & Plan (12/16/2024 2:50 PM EDT): Start Xyzal nightly. Continue flonase BID and OTC zyrtec AM as needed Orders: levocetirizine (Xyzal) 5 mg tablet; Take 1 tablet (5 mg total) by mouth 1 (one) time each day in the evening. Alopecia 07/07/2024 Chronic rhinitis 07/07/2024 Assessment & Plan (05/26/2025 6:01 PM EDT): Continue xyzal nightly as needed and flonase as needed Assessment & Plan (12/16/2024 2:50 PM EDT): Start Xyzal nightly. Continue flonase BID and OTC zyrtec AM as needed Orders: levocetirizine (Xyzal) 5 mg tablet; Take 1 tablet (5 mg total) by mouth 1 (one) time each day in the evening. Class 2 obesity due to exces s calories with body mass index (BMI) of 38.0 to 38.9 in adult 07/07/2024 Assessment & Plan (05/26/2025 6:01 PM EDT): Lifestyle counseling provided Continue Mounjaro 7.5 mg weekly Assessment & Plan (04/04/2025 2:14 PM EDT): Continue Mounjaro weekly Assessment & Plan (12/16/2024 2:50 PM EDT): Given her weight gain and difficulty with weight loss on Ozempic she is advised to discuss the option of Mounjaro or Zepbound with her biology department chair at the next visit Continue with exercise and lifestyle management Systolic murmur 07/07/2024 Resolved Problems Problem Noted Date Diagnosed Date Resolved Date Chronic superficial gastriti s without bleeding 07/22/2024 05/26/2025 Overview (07/22/2024): Chronic inactive gastritis, glandular atrophy and intestinal metaplasia without dysplasia on egd /biopsy done on 04/12/24 at [facility] Encounters Date Type Department Care Team Description 05/27/2025 Telephone Adult Medicine [address] [phone] Melissa Brandt MD 05/26/2025 3:00 PM EDT Office Visit Adult [address] [phone] Melissa Brandt MD Annual physical exam (Primary Dx); Hypercholesterolemia; Primary hypertension; Type 2 diabetes mellitus with microalbuminuria (CMS/HCC V24, CMS/HCC V28); Adrenal hyperplasia (CMS/HCC V24); Adrenal nodule (CMS/HCC V24); Encounter for screening mammogram for malignant neoplasm of breast; Allergic conjunctivitis of both eyes; Chronic rhinitis; Mild HOCM (hypertrophic obstructive cardiomyopathy) (CMS/HCC V24, CMS/HCC V28); Class 2 severe obesity due to excess calories with serious comorbidity and body mass index (BMI) of 38.0 to 38.9 in adult; Lung nodules 05/23/2025 Telephone Adult Medicine [address] [phone] Irene Perez LPN 05/05/2025 2:24 PM EDT - 05/05/2025 11:59 PM EDT Hospital Encounter [facility] [address] [place] [id number] Adrenal hyperplasia (CMS/HCC V24); Adrenal nodule (CMS/HCC V24) Discharge Disposition: Home or Self Care 04/25/2025 Telephone Adult Medicine [address] [phone] Melissa Brandt MD 04/21/2025 Telephone Adult Medicine [address] [phone] Melissa Brandt MD 04/20/2025 2:09 PM EDT - 04/20/2025 11:59 PM EDT Hospital Encounter CT Scan - [address] [phone] Lung nodules Discharge Disposition: Home or Self Care from Last 3 Months Immunizations Immunization Administration Dates Next Due Influenza Quadravalent, MDCK , 0.5ml, preservative free (Flucelvax) 6mo and older 05/24/2023,06/09/2022 Influenza Quadrivalent, 0.5m l, preservative free (Fluarix; FluLaval; Fluzone) ages 6mo and older (Afluria) 3yo and older 05/05/2021,05/20/2019,04/16/2017,2015 Influenza Quadrivalent, with preservative (Fluzone; Afluria) 6mo and older 06/06/2020,05/26/2018 Influenza trivalent, 0.5mL, preservative free (Fluarix; FluLaval; Fluzone) ages 6mo and older (Afluria) 3 years and older 05/29/2020,04/19/2019,05/19/2018,2016 Influenza trivalent, MDCK, 0 .5mL, preservative free (Flucelvax) 6mo and older 04/28/2024 Influenza, live, intranasal, trivalent (FluMist) 2yo to less than 50yo 04/18/2016 Pneumococcal conjugate 20 va lent (Prevnar 20, PCV 20) 2mo and older 04/04/2025 Surgical History Surgery Date Site/Laterality Comments HYSTERECTOMY 08/18/2003 - 08/17/2004 states she had partial hysterecomy and unilateral oopherectomy Medical History Medical History Date Comments Diabetes mellitus (CMS/[facility] V 24, CMS/[facility] V28) Allergic rhinitis Anxiety Cataract Heart murmur Hypertension Obesity Chronic superficial gastriti s without bleeding 07/22/2024 Chronic inactive gastritis, glandular atrophy and intestinal metaplasia without dysplasia on egd /biopsy done on 04/12/24 at [facility] Family History Medical History Relation Name Comments Diabetes Father Nikunj Heart disease Father Nikunj Hypertension Father Nikunj COPD Mother Melvi Hearing loss Mother Melvi Lung cancer Mother Melvi tobacco use Mother Melvi Breast cancer Mother's Sister 70s Colon cancer Neg Hx Ovarian cancer Neg Hx Relation Name Status Comments Father Nikunj Maternal Grandfather Maternal Grandmother Mother Melvi Mother's Sister Paternal Grandfather Paternal Grandmother Sister Lacie Rincon Alive Social History Tobacco Use Types Packs/Day Years Used Date Smoking Tobacco: Former Cigarettes 0.3 5.2 S tarted: 1989 Smokeless Tobacco: Never Tobacco Cessation:Counseling Given: Not Answered Comments:Was a social smoker. She quit tobacco use about 30 years ago Alcohol Use Standard Drinks/Week Comments Yes 2 (1 standard drink = 0.6 oz pur e alcohol) socially Housing Instability Answer Date Recorde d Are you worried that in the next 2 months you may not have stable housing? No 06/17/2024 Food Access & Nutrition Answer Date Rec orded Do you have access to a vari ety of food including fruits and vegetables? Yes 06/17/2024 Access to Healthcare Answer Date Record ed Within the last 3 months, ho w many times did you visit the emergency department for your medical care? 0 06/17/2024 Health Literacy Answer Date Recorded How often do you need to hav e someone help you when you read instructions, pamphlets, or other written material from your doctor or pharmacy? Never 06/17/2024 Caregiver: How often do you need to have someone help you when you read instructions, pamphlets, or other written material from your doctor or pharmacy? Not on file 06/17/2024 Financial Risk Answer Date Recorded How hard is it for you to pa y for the very basics like food, housing, medical care, and air conditioning / heating? Not very hard 06/17/2024 Transportation Answer Date Recorded Has the lack of transportati on kept you from meetings, work, or from getting things needed for daily living? No Has the lack of transportati on kept you from medical appointments or from getting medications? No 06/17/2024 Social Isolation Answer Date Recorded How often do you feel lonely or isolated from th ose around you? Rarely 06/17/2024 Food Risk Answer Date Recorded Within the past 12 months we worried whether our food would run out before we got money to buy more. Never true 06/17/2024 Within the past 12 months th e food we bought just didn't last and we didn't have money to get more. Never true 06/17/2024 Dependent Care Answer Date Recorded Do you need help finding or paying for care for your loved ones. For example, children's librarian or elderly care for an older adult? No 06/17/2024 Education Answer Date Recorded Do you think completing more education or training, like finishing a GED, going to college, or learning a trade, would be helpful for you? N/A 06/17/2024 Employment and Income Answer Date Recor ded During the last four weeks, have you been actively looking for work? No 06/17/2024 Living Situation Answer Date Recorded What is your living situation? Unrecognized valu e 06/17/2024 Comments No Sex and Gender Information Value Date Recorded Sex Assigned at Not on file Legal Sex Female 2:23 PM EST Gender Identity Female 05/25/2025 9:41 PM EDT Sexual Orientation Straight 05/25/2025 9: 41 PM EDT Obstetrics History Last Filed Vital Signs Vital Sign Reading Time Taken Comments Blood Pressure 120/60 05/26/2025 3:14 PM EDT Pulse 78 05/26/2025 3:14 PM EDT Temperature 35.8 C (96.4 F) 05/26/2025 3:14 PM EDT Respiratory Rate 17 04/04/2025 1:26 PM EDT Oxygen Saturation 98% 05/26/2025 3:14 PM EDT Inhaled Oxygen Concentration - - Weight 109 kg (239 lb 6.4 oz) 05/26/2025 3:14 PM EDT Height 167.6 cm (5' 5.98 ) 05/26/2025 3:14 PM ED T Body Mass Index 38.66 05/26/2025 3:14 PM EDT Plan of Treatment Upcoming Encounters Date Type Department Care Team (Late st Contact Info) Description 12/23/2025 4:00 PM EDT Appointment Radiology Department [address] [phone] Health Maintenance Due Date Last Done Comments Zoster Vaccines (1 of 2) 1980 RSV Immunization Adult Patients (1 - Risk 50-74 years 1-dose series) 12/09/2011 HIV Screening 05/19/2024 Influenza Vaccine (#1) 2025 , 05/24/2023, 06/09/2022, Additional history exists Social Influencers of Health Screening 06/17/2025 06/17/2024 Diabetes: Annual Urine Albumin-Creatinine Ratio (uACR) 07/21/2025 07/21/2024 Diabetes: Blood Sugar Control Test (HGBA1C) 10/05/2025 04/04/2025, 07/21/2024 Diabetes: Annual Retina Eye Exam 10/16/2025 10/16/2024 Diabetes: Annual Foot Exam 12/16/2025 12/16/2024 Diabetes: Annual GFR (Glomerular Filtration Rate) 04/15/2026 04/15/2025, 02/03/2025, 01/18/2025, Additional history exists Hypertension/CHF/CAD Annual BMP Blood Test 04/15/2026 04/15/2025, 02/03/2025, 01/18/2025, Additional history exists Breast Cancer Screening 12/14/2026 12/14/2024, 12/04 Cervical Cancer Screening: Pap Smear 03/22/2027 03/22/2024 Cholesterol Screening (Lipid Panel) 01/18/2030 01/18/2025, 07/21/2024 Colorectal Cancer Screening: Colonoscopy 07/24/2031 07/24/2021 Hepatitis C Screening Completed 07/21/2024 Depression Screening Completed 12/13/2024 Pneumococcal Vaccine: 50+ Years Completed 04/04/2025 COVID-19 Vaccine Discontinued DTaP,Tdap,and Td Vaccines Discontinued HIB Vaccines Aged Out No longer eligi ble based on patient's age to complete this topic HPV Vaccines Aged Out No longer eligi ble based on patient's age to complete this topic Hepatitis A Vaccines Aged Out No long er eligible based on patient's age to complete this topic Hepatitis B Vaccines Aged Out No long er eligible based on patient's age to complete this topic IPV Vaccines Aged Out No longer eligi ble based on patient's age to complete this topic MMR Vaccines Aged Out No longer eligi ble based on patient's age to complete this topic Meningococcal ACWY Vaccine Aged Out N o longer eligible based on patient's age to complete this topic Meningococcal B Vaccine Aged Out No l onger eligible based on patient's age to complete this topic RSV Immunization Patients Under 20 months Aged Out No longer eligible based on patient's age to complete this topic Varicella Vaccines Aged Out No longer eligible based on patient's age to complete this topic Procedures Procedure Name Priority Date/Time Associated Diagnosis Comments MR ABDOMEN WO AND W CONTRAST Routine 05/05/2025 4:12 PM EDT Adrenal hyperplasia (CMS/HCC V24) Adrenal nodule (CMS/HCC V24) CT CHEST W CONTRAST STAT 04/20/2025 2 :27 PM EDT Lung nodules BASIC METABOLIC PANEL Routine 04/15/2025 3:51 PM EDT Type 2 diabetes mellitus with microalbuminuria (CMS/HCC V24, CMS/HCC V28) HEMOGLOBIN A1C Routine 04/04/2025 2:20 PM EDT Type 2 diabetes mellitus with microalbuminuria (CMS/HCC V24, CMS/HCC V28) LIPID PANEL WITH REFLEX TO DIRECT LDL Routine 01/18/2025 8:06 AM EDT Hypercholesterolemia EXTERNAL MAMMOGRAM REPORT 12/14/2024 HEPATITIS C ANTIBODY Routine 07/21/2024 7:57 AM EST Need for hepatitis C screening test MICROALBUMIN CREATININE URINE RATIO Routine 07/21/2024 7:57 AM EST Type 2 diabetes mellitus with microalbuminuria (CMS/HCC V24, CMS/HCC V28) from Last 3 Months or Most Recently Relevant to Health Maintenance Results * MR Abdomen wo and w Contrast (05/05/2025 4:12 PM EDT) Anatomical Region Laterality Modality Body Magnetic Resonan ce 05/05/2025 5:23 PM EDT Impressions 05/05/2025 6:02 PM EDT 1. The study is markedly limited by motion artifact. 2. No suspicious adrenal mass. 3. Mild generalized thickening of the left adrenal gland and slight nodularity of the right adrenal gland. There is signal loss on out of phase chemical shift imaging suggesting adenomatous hyperplasia. 4. 2.0 cm round mass in the ventral upper left kidney. This may represent a proteinaceous or hemorrhagic cyst. Compare with previous recommended. -------- FINAL REPORT -------- Dictated By: Asad Franks Dictated Date: 05/05/2025 17:23 ET Assigned Physician: Asad Franks Reviewed and Electronically Signed By: Asad Franks Signed Date: 05/05/2025 18:02 ET Workstation ID: [id number] Transcribed By: Self Edit Transcribed Date: 05/05/2025 17:23 ET Narrative 05/05/2025 6:02 PM EDT EXAMINATION: MRI ABDOMEN WITHOUT AND WITH IV CONTRAST CLINICAL INFORMATION: Adrenal mass. Right adrenal nodule. Left adrenal gland hyperplasia. COMPARISON: The report from CT of the chest indicates 1.3 cm right adrenal nodule. Left adrenal hyperplasia. TECHNIQUE: Anatomic and fluid sensitive MR sequences targeting the region of the adrenal glands was obtained on a high-field platform. MRCP was not performed. Imaging before and after the IV administration of contrast. Amount of IV contrast: 20 mL Type of contrast: Dotarem Volume of contrast discarded: 0 mL FINDINGS: The study is markedly limited by motion artifact. LIVER: No suspicious liver lesion. No intrahepatic biliary dilation. BILIARY TRACT: There is no cholelithiasis or biliary dilation. MRCP: Not performed SPLEEN: No suspicious abnormality. PANCREAS: No definite abnormality. ADRENAL GLANDS: No suspicious adrenal mass. Mild generalized thickening of the left adrenal gland which appears to demonstrate signal loss on out of phase chemical shift imaging. Slight nodularity of the right adrenal gland likely demonstrates signal loss. There may be some washout from the right adrenal nodule. KIDNEYS: There are some small cysts. There is an approximately 2.0 cm round mass in the ventral upper left kidney. This is T1 hypointense and is hyperintense on anatomic series. No convincing enhancement. This may represent a proteinaceous or hemorrhagic cyst. GASTROINTESTINAL TRACT: Limited assessment. No large abnormality. ABDOMINAL WALL: Not completely included. LYMPHOVASCULAR STRUCTURES AND FLUID: No lymphadenopathy. The aorta is unremarkable. MUSCULOSKELETAL: No acute or suspicious osseous abnormality. VISUALIZED LOWER CHEST: No suspicious abnormality. Procedure Note Asad Franks MD - 05/05/2025 EXAMINATION: MRI ABDOMEN WITHOUT AND WITH IV CONTRAST CLINICAL INFORMATION: Adrenal mass. Right adrenal nodule. Left adrenal gland hyperplasia. COMPARISON: The report from CT of the chest indicates 1.3 cm right adrenal nodule.Left adrenal hyperplasia. TECHNIQUE: Anatomic and fluid sensitive MR sequences targeting the region of theadrenal glands was obtained on a high-field platform. MRCP was not performed. Imaging before and after the IV administration of contrast. Amount of IV contrast: 20 mL Type of contrast: Dotarem Volume of contrast discarded: 0 mL FINDINGS: The study is markedly limited by motion artifact. LIVER: No suspicious liver lesion. No intrahepatic biliary dilation. BILIARY TRACT: There is no cholelithiasis or biliary dilation. MRCP: Not performed SPLEEN: No suspicious abnormality. PANCREAS: No definite abnormality. ADRENAL GLANDS: No suspicious adrenal mass. Mild generalized thickening ofthe left adrenal gland which appears to demonstrate signal loss on out ofphase chemical shift imaging. Slight nodularity of the right adrenal gland likely demonstrates signalloss. There may be some washout from the right adrenal nodule. KIDNEYS: There are some small cysts. There is an approximately 2.0 cmround mass in the ventral upper left kidney. This is T1 hypointense and ishyperintense on anatomic series. No convincing enhancement. This mayrepresent a proteinaceous or hemorrhagic cyst. GASTROINTESTINAL TRACT: Limited assessment. No large abnormality. ABDOMINAL WALL: Not completely included. LYMPHOVASCULAR STRUCTURES AND FLUID: No lymphadenopathy. The aorta isunremarkable. MUSCULOSKELETAL: No acute or suspicious osseous abnormality. VISUALIZED LOWER CHEST: No suspicious abnormality. IMPRESSION: 1. The study is markedly limited by motion artifact. 2. No suspicious adrenal mass. 3. Mild generalized thickening of the left adrenal gland and slightnodularity of the right adrenal gland. There is signal loss on out ofphase chemical shift imaging suggesting adenomatous hyperplasia. 4. 2.0 cm round mass in the ventral upper left kidney. This may representa proteinaceous or hemorrhagic cyst. Compare with previous recommended. -------- FINAL REPORT -------- Dictated By: Asad Franks Dictated Date: 05/05/2025 17:23 ET Assigned Physician: Asad Franks Reviewed and Electronically Signed By: Asad Franks Signed Date: 05/05/2025 18:02 ET Workstation ID: [id number] Transcribed By: Self Edit Transcribed Date: 05/05/2025 17:23 ET Melissa Brandt MD IMG MRI PROCEDUR ES Final Result * CT Chest w Contrast (04/20/2025 2:27 PM EDT) Anatomical Region Laterality Modality Body Computed Tomogra phy 04/20/2025 2:43 PM EDT Impressions 04/20/2025 3:05 PM EDT Large right-sided bridging osteophytes of the thoracic spine are felt to respond to the rounded opacities suggested on the chest x-ray. Bilateral pulmonary nodules. Follow-up chest CT in 3 months is suggested. Alternatively, PET/CT could be considered. 1.3 x 1.2 x 1.3 cm right adrenal nodule. Noncontrast chest CT is suggested to evaluate for adrenal adenoma. -------- FINAL REPORT -------- Dictated By: Shira Clinton Dictated Date: 04/20/2025 14:43 ET Assigned Physician: Shira Clinton Reviewed and Electronically Signed By: Shira Clinton Signed Date: 04/20/2025 15:05 ET Workstation ID: [id number] Transcribed By: Self Edit Transcribed Date: 04/20/2025 14:43 ET Narrative 04/20/2025 3:[address] CHEST W CONTRAST HISTORY: Abnormal x-ray. 2 rounded opacities visualized on the lateral view of chest x- ray. TECHNIQUE: Multiple axial images are obtained from the thoracic inlet through the upper abdomen. 100 cc Isovue-370 was administered IV. COMPARISON: Chest x-ray 04/06/2025. FINDINGS: There is a 0.3 x 0.3 x 0.4 cm juxtapleural nodule in the left upper lobe on image 62. There is a 0.7 x 1.4 x 0.6 cm pulmonary nodule in the medial posterior right lung on image 283. However, this is too small and too low to account for the chest x-ray finding. There is a 0.6 x 0.4 x 0.7 cm pulmonary nodule in the left lower lobe on image 221. There is a 0.3 cm pulmonary nodule in the posterior medial left lower lobe on image 278. There is no pleural effusion, infiltrate, pneumothorax, cardiomegaly, or pericardial effusion. There is atherosclerosis. There is calcification of the coronary arteries. No lymphadenopathy is seen. There is a 1.3 x 1.2 x 1.3 cm right adrenal nodule. There is left adrenal gland hyperplasia. The partially visualized upper abdominal organs are otherwise unremarkable. No suspicious bone lesions seen. There are large bridging osteophytes on the right side of the thoracic spine. Procedure Note Shira Clinton MD - 04/20/2025 CT CHEST W CONTRAST HISTORY: Abnormal x-ray. 2 rounded opacities visualized on the lateralview of chest x-ray. TECHNIQUE: Multiple axial images are obtained from the thoracic inletthrough the upper abdomen. 100 cc Isovue-370 was administered IV. COMPARISON: Chest x-ray 04/06/2025. FINDINGS: There is a 0.3 x 0.3 x 0.4 cm juxtapleural nodule in the left upper lobeon image 62. There is a 0.7 x 1.4 x 0.6 cm pulmonary nodule in the medialposterior right lung on image 283. However, this is too small and too lowto account for the chest x-ray finding. There is a 0.6 x 0.4 x 0.7 cmpulmonary nodule in the left lower lobe on image 221. There is a 0.3 cmpulmonary nodule in the posterior medial left lower lobe on image 278. There is no pleural effusion, infiltrate, pneumothorax, cardiomegaly, orpericardial effusion. There is atherosclerosis. There is calcification ofthe coronary arteries. No lymphadenopathy is seen. There is a 1.3 x 1.2 x 1.3 cm right adrenal nodule. There is left adrenalgland hyperplasia. The partially visualized upper abdominal organs areotherwise unremarkable. No suspicious bone lesions seen. There are largebridging osteophytes on the right side of the thoracic spine. IMPRESSION: Large right-sided bridging osteophytes of the thoracic spine are felt torespond to the rounded opacities suggested on the chest x-ray. Bilateral pulmonary nodules. Follow-up chest CT in 3 months is suggested.Alternatively, PET/CT could be considered. 1.3 x 1.2 x 1.3 cm right adrenal nodule. Noncontrast chest CT is suggestedto evaluate for adrenal adenoma. -------- FINAL REPORT -------- Dictated By: Shira Clinton Dictated Date: 04/20/2025 14:43 ET Assigned Physician: Shira Clinton Reviewed and Electronically Signed By: Shira Clinton Signed Date: 04/20/2025 15:05 ET Workstation ID: [id number] Transcribed By: Self Edit Transcribed Date: 04/20/2025 14:43 ET Melissa Brandt MD IM CT PROCEDURE S Final Result * (ABNORMAL) Basic metabolic panel (04/15/2025 3:51 PM EDT) Sodium 141 133 - 145 mmol/L LAB CHEMISTRY METHOD 04/15/2025 6:57 PM [facility] Potassium 3.8 3.5 - 5.5 mmol/L LAB CHEMISTRY METHOD 04/15/2025 6:57 PM [facility] Chloride 108 96 - 110 mmol/L LAB CHEMISTRY METHOD 04/15/2025 6:57 PM [facility] CO2 27 21 - 32 mmol/L LAB CHEMISTRY METHOD 04/15/2025 6:57 PM [facility] Anion Gap 6 3 - 11 LAB CHEMISTRY METHOD 04/15/2025 6:57 PM [facility] Glucose 330(H) 70 - 100 mg/dL LAB CHEMISTRY METHOD 04/15/2025 6:57 PM [facility] BUN 12 5 - 25 mg/dL LAB CHEMISTRY METHOD 04/15/2025 6:57 PM [facility] Creatinine 0.82 0.50 - 1.10 mg/dL LAB CHEMISTRY METHOD 04/15/2025 6:57 PM EDT [facility] eGFR 80 >=60 mL/min/1. 73m2 LAB CHEMISTRY METHOD 04/15/2025 6:57 PM EDT [facility] Comment:Calculation based on the Chronic Kidney Disease Epidemiology Collaboration (CKD-EPI) equation refit without adjustment for race. BUN/Creatinine Ratio 14.6 LAB CHEMISTRY METHOD 04/15/2025 6:57 PM EDT [facility] Calcium 9.1 8.5 - 10.5 mg/dL LAB CHEMISTRY METHOD 04/15/2025 6:57 PM EDT [facility] Blood Venous blood specimen / Unknown Venipuncture / Unknown 04/15/2025 3:51 PM EDT 04/15/2025 3:51 PM EDT us Melissa Brandt MD LAB BLOOD ORDERA BLES Final Result [facility] [address] [place] [address], * (ABNORMAL) Hemoglobin A1c (04/04/2025 2:20 PM EDT) Hemoglobin A1C 9.3(H) <6.5 % LAB CHEMISTRY METHOD 04/04/2025 8:16 PM EDT [facility] Mean Bld Glu Estim. 220 mg/dL LAB CHEMISTRY METHOD 04/04/2025 8:16 PM EDT [facility] Blood Venous blood specimen / Unknown Venipuncture / Unknown 04/04/2025 2:20 PM EDT 04/04/2025 2:20 PM EDT us Melissa Brandt MD LAB BLOOD ORDERA BLES Final Result [facility] [address] [place] [address], [place] [phone] * Lipid panel with reflex to direct LDL (01/18/2025 8:06 AM EDT) Cholesterol 132 0 - 200 mg/dL LAB CHEMISTRY METHOD 01/18/2025 10:54 AM EDT [facility] Triglycerides 96 0 - 150 mg/dL LAB CHEMISTRY METHOD 01/18/2025 10:54 AM EDT [facility] HDL 50 >=40 mg/dL LAB CHEMISTRY METHOD 01/18/2025 10:54 AM EDT [facility] LDL Calculated 63 0 - 100 mg/dL LAB CHEMISTRY METHOD 01/18/2025 10:54 AM EDT [facility] VLDL Cholesterol Allan 19.2 mg/dL LAB CHEMISTRY METHOD 01/18/2025 10:54 AM EDT [facility] Non HDL Chol. (LDL+VLDL) 82 <145 mg/dL LAB CHEMISTRY METHOD 01/18/2025 10:54 AM EDT [facility] Chol/HDL Ratio 2.6 0.0 - 4.4 LAB CHEMISTRY METHOD 01/18/2025 10:54 AM EDT [facility] Blood Venous blood specimen / Unknown Venipuncture / Unknown 01/18/2025 8:06 AM EDT 01/18/2025 8:06 AM EDT us Melissa Brandt MD LAB BLOOD ORDERA BLES Final Result [facility] [address] [place] [address], [place] [phone] * External Mammogram Report (12/14/2024) Anatomical Region Laterality Modality Mammography us Provider [facility] IMG BI PROCEDURES Final Result * Hepatitis C antibody (07/21/2024 7:57 AM EST) Hepatitis C Antibody Negative Negative LAB CHEMISTRY METHOD 07/21/2024 11:18 AM EST [facility] Blood Venous blood specimen / Unknown Venipuncture / Unknown 07/21/2024 7:57 AM EST 07/21/2024 7:57 AM EST Melissa Brandt MD LAB BLOOD ORDERA BLES Final Result Performing Organization Address City/[facility]/ZIP Co de Phone Number [facility] [address] [place] [address], [place] [phone] * (ABNORMAL) Microalbumin creatinine urine ratio (07/21/2024 7:57 AM EST) [facility] Creatinine, Urine 147.0 mg/dL LAB CHEMISTRY METHOD 07/21/2024 11:00 AM EST [facility] Microalb, Ur 114.0(H) 0.0 - 29.0 mg/L LAB CHEMISTRY METHOD 07/21/2024 11:00 AM EST [facility] Microalb/Crea t Ratio 78(H) <30 mg/g creat LAB CHEMISTRY METHOD 07/21/2024 11:00 AM EST [facility] Urine Urine specimen obtained by clean catch procedure / Unknown Non-blood Collection / Unknown 07/21/2024 7:57 AM EST 07/21/2024 7:57 AM EST Melissa Brandt MD LAB URINE ORDERA BLES Final Result [facility] [address] [place] [address], [place] [phone] from Last 3 Months or Most Recently Relevant to Health Maintenance Insurance [employer] Care Teams [employer]inter Relationship Specialty Start Date End Date Melissa Brandt MD [address] [place] [phone] PCP - General Internal Medicine 11/11/23
== END 2025-07-18 16:10 | disposition home or self-care (01) ==
LOC: HO.HWS 15:36
PROVIDERS: PCP Family Medicine; Visit Provider Obstetrics & Gynecology
DX: Z01.419 Encounter for gynecological examination (general) (routine) without abnormal findings (principal)
CPT/HCPCS: 99396; 99459